=== PATIENT | male | born 1955 | race Caucasian/White ===

== ENCOUNTER 2021-08-26 10:28 | Emergency (ER) | payer OTHER ==
[~2021-08-26] VITALS: Ht 175.3 cm; Wt 96.8 kg
[2021-08-26] MEDS ORDERED: diphenhydrAMINE 50 MG/ML VIAL IVP ONE (11:00)
[2021-08-26] MEDS ORDERED: methylPREDNISolone SOD SUCC PF 125 MG/2 ML VIAL. IV ONE (11:00)
[2021-08-26] MEDS ORDERED: FAMOTIDINE 20 MG/2 ML VIAL IVP ONE (11:00)
--- NOTE | 2021-08-26 11:16 | PHYS DOC ---
Past Medical History Past Medical History: High Cholesterol, Hypertension (ALEKSANDAR LOZANO APRN) Past Surgical History: Knee Replacement (ALEKSANDAR LOZANO APRN) Smoking Status: Current Every Day Smoker Additional Information: 5 cigars a day Alcohol Use: Heavy Additional Information: 2 martinis every evening Drug Use: None (ALEKSANDAR LOZANO APRN) General Adult EDM: Chief Complaint: ALLERGIC REACTION HPI: HPI: Patient is a 66-year-old male who presents today with upper lip swelling. Patient states around 830 this morning he noticed that his gumline on the upper jaw was numb, and then a few minutes later he noticed that his right upper lip was swelling. Patient arrived here to the emergency department for further evaluation and management of this. Patient states that he takes lisinopril and atorvastatin for hypertension and high cholesterol, he also has been using some CBD oils as well that are topical but he is unsure what is causing his swelling of his lip. Patient states that he has been taking lisinopril for approximately 5 years, and has never had any problems with it. Patient denies chest pain, shortness of breath, any difficulty swallowing, or feeling that his throat is closing. (ALEKSANDAR LOZANO APRN) Review of Systems: Review of Systems: Constitutional: Denies fever or chills. [] Eyes: Denies change in visual acuity. [] HENT: Lip swelling Respiratory: Denies cough or shortness of breath. [] Cardiovascular: Denies chest pain or edema. [] GI: Denies abdominal pain, nausea, vomiting, bloody stools or diarrhea. [] : Denies dysuria. [] Musculoskeletal: Denies back pain or joint pain. [] Integument: Denies rash. [] Neurologic: Denies headache, focal weakness or sensory changes. [] Endocrine: Denies polyuria or polydipsia. [] Lymphatic: Denies swollen glands. [] Psychiatric: Denies depression or anxiety. [] (ALEKSANDAR LOZANO APRN) Heart Score: C/O Chest Pain: No Risk Factors: Risk Factors: DM, Current or recent (<one month) smoker, HTN, HLP, family history of CAD, obesity. Risk Scores: Score 0 - 3: 2.5% MACE over next 6 weeks - Discharge Home Score 4 - 6: 20.3% MACE over next 6 weeks - Admit for Clinical Observation Score 7 - 10: 72.7% MACE over next 6 weeks - Early Invasive Strategies (ALEKSANDAR LOZANO CARDIAC EXERCISE PHYSIOLOGIST) Current Medications: Current Medications Medications (Trade) Dose Ordered Sig/Mo Start Time Stop Time Status Last Admin Dose Admin Diphenhydramine HCl (Benadryl) 25 mg 1X ONCE 08/26/21 11:00 08/26/21 11:01 DC 08/26/21 10:59 25 MG Famotidine (Pepcid Vial) 20 mg 1X ONCE 08/26/21 11:00 08/26/21 11:01 DC 08/26/21 11:01 20 MG Methylprednisolone Sodium Succinate (SOLU-Medrol 125MG VIAL) 125 mg 1X ONCE 08/26/21 11:00 08/26/21 11:01 DC 08/26/21 10:58 125 MG (ALEKSANDAR LOZANO CARDIAC EXERCISE PHYSIOLOGIST) Allergies: Allergies: Allergies Coded Allergies Type Severity Reaction Last Updated Verified codeine Allergy Intermediate Unknown 08/26/21 Yes (ALEKSANDAR LOZANO APRN) Physical Exam: PE: Constitutional: Well developed, well nourished, no acute distress, non-toxic appearance. [] HENT: Inspection and palpation of the head and face shows a swollen right upper lip, with numbness to the right gumline, patient is able to open mouth and I was able to visualize the uvula which was normal in size, patient was able to stick out tongue with no swelling noted of the tongue. Eyes: PERRLA, EOMI, conjunctiva normal, no discharge. [] Neck: Normal range of motion, no tenderness, supple, no stridor. [] Cardiovascular:Heart rate regular rhythm, no murmur [] Lungs & Thorax: Bilateral breath sounds clear to auscultation [] Abdomen: Bowel sounds normal, soft, no tenderness, no masses, no pulsatile mass es. [] Skin: Warm, dry, no erythema, no rash. [] Back: No tenderness, no CVA tenderness. [] Extremities: No tenderness, no cyanosis, no clubbing, ROM intact, no edema. [] Neurologic: Alert and oriented X 3, normal motor function, normal sensory function, no focal deficits noted. [] Psychologic: Affect normal, judgement normal, mood normal. [] (ALEKSANDAR LOZANO APRN) Current Patient Data: Vital Signs: Vital Signs Date Time Temp Pulse Resp B/P (MAP) Pulse Ox O2 Delivery O2 Flow Rate FiO2 08/26/21 10:30 98.1 80 20 156/81 (106) 100 Room Air 98.1 Vital Signs Date Time Temp Pulse Resp B/P (MAP) Pulse Ox O2 Delivery O2 Flow Rate FiO2 08/26/21 10:30 98.1 80 20 156/81 (106) 100 Room Air 98.1 (ALEKSANDAR LOZANO APRN) EKG: EKG: [] (ALEKSANDAR LOZANO APRN) Radiology/Procedures: Radiology/Procedures: [] (ALEKSANDAR LOZANO APRN) Course & Med Decision Making: Course & Med Decision Making Pertinent Labs and Imaging studies reviewed. (See chart for details) 1330 reassessment of patient, patient states he is lip does continue to feel swollen but he says he feels better than he did, his numbness is improving, I will give a dose of dexamethasone p.o. here in the department, patient will also be sent home with a prednisone burst over the next 5 days, patient is advised to take [id number] Pepcid 20 mg twice daily, take Benadryl as needed for swelling and itching, and patient most importantly is to stop his lisinopril and follow-up with his primary care physician as soon as possible for further evaluation and management of his blood pressure. Patient verbalized understan ding of this and agreeable with the plan of care. (ALEKSANDAR LOZANO APRN) Dragon Disclaimer: Dragon Disclaimer: This electronic medical record was generated, in whole or in part, using a voice recognition dictation system. (ALEKSANDAR LOZANO APRN) Departure Departure Impression: Primary Impression: Allergic reaction Qualified Codes: T78.40XA - Allergy, unspecified, initial encounter Disposition: HOME / SELF CARE / HOMELESS Condition: STABLE Referrals: NO PCP (PCP) Patient Instructions: Drug Allergy Additional Instructions: Stop your lisinopril at this time Prednisone 50 mg take 1 tablet daily for 5 days [id number] Pepcid 20 mg take 1 tablet twice daily for the next 5 days [id number] Benadryl as needed for itching and swelling Follow-up with your primary care physician at [facility] for further evaluation and treatment of your hypertension since we are stopping your lisinopril because we believe this is the medication that is causing your lip swelling. Return to the emergency department should you have any further or worsening lip swelling, you have any difficulty with breathing, you notice your tongue is swollen or any other concerns you may have. Scripts Prednisone (PREDNISONE) 50 Mg Tablet 1 TAB PO DAILY, #5 TAB Prov: ALEKSANDAR LOZANO CARDIAC EXERCISE PHYSIOLOGIST 08/26/21 Attending Signature Attending Signature I have reviewed the PA/SILK SCREEN FRAME ASSEMBLER's note and plan of care. I was available for consultation as needed during the patient's visit in the emergency department. I agree with the clinical impression, plan, and disposition. (ANNETTE CORREIA DO) ALEKSANDAR LOZANO CARDIAC EXERCISE PHYSIOLOGIST Aug 26, 2021 11:16 ANNETTE CORREIA DO September 01, 2021 00:51
[2021-08-26] MEDS ORDERED: DEXAMETHASONE 4 MG TABLET PO ONE (13:30)
[2021-08-26] MEDS ORDERED: PRED50TA PO (13:34)
[2021-08-26 13:39] VITALS: BP 166/88
== END 2021-08-26 13:45 | disposition home or self-care (01) ==
LOC: ER 10:28
DX: T78.40XA Allergy, unspecified, initial encounter (principal); E78.00 Pure hypercholesterolemia, unspecified; I10 Essential (primary) hypertension; F17.210 Nicotine dependence, cigarettes, uncomplicated; F10.20 Alcohol dependence, uncomplicated; Y90.9 Presence of alcohol in blood, level not specified; Z88.5 Allergy status to narcotic agent
CPT/HCPCS: 96374; 96375; 99285; J1200; J2930; J3490